=== PATIENT | female | born 1950 | race Caucasian/White ===

== ENCOUNTER → 2019-05-18 | Outpatient (CLI) | payer OTHER ==
[~2019-05-18] MED LIST: ATIVAN1 MG PO; COUMADIN 4 MG TA4 M1 PO; COZAAR 50 MG TA50 M1 PO; DIOVAN160 MG PO; GLUCOPHAGE1000 MG PO; METOPROLOL 100100 M1 PO; SIMVASTATIN OR; TRIAMTERENE-HC1 EAC3 PO; ZOCOR40 MG
== END ==
LOC: SJCVC 10:25
DX: R94.31 Abnormal electrocardiogram [ECG] [EKG] (principal); I48.0 Paroxysmal atrial fibrillation; E11.22 Type 2 diabetes mellitus with diabetic chronic kidney disease; I12.9 Hypertensive chronic kidney disease with stage 1 through stage 4 chronic kidney disease, or unspecified chronic kidney disease; N18.2 Chronic kidney disease, stage 2 (mild); E78.5 Hyperlipidemia, unspecified; K21.9 Gastro-esophageal reflux disease without esophagitis; Z90.49 Acquired absence of other specified parts of digestive tract; Z79.899 Other long term (current) drug therapy; Z87.891 Personal history of nicotine dependence

== ENCOUNTER → 2019-11-19 | Outpatient (CLI) | payer OTHER | LOC: SJCVC 10:20 | PROVIDERS: ATTEND Internal Medicine | DX: R00.1 Bradycardia, unspecified (principal); R94.31 Abnormal electrocardiogram [ECG] [EKG]; I48.0 Paroxysmal atrial fibrillation; I12.9 Hypertensive chronic kidney disease with stage 1 through stage 4 chronic kidney disease, or unspecified chronic kidney disease; E11.22 Type 2 diabetes mellitus with diabetic chronic kidney disease; N18.2 Chronic kidney disease, stage 2 (mild); E78.5 Hyperlipidemia, unspecified; G45.9 Transient cerebral ischemic attack, unspecified; E66.9 Obesity, unspecified; Z82.49 Family history of ischemic heart disease and other diseases of the circulatory system; Z87.891 Personal history of nicotine dependence; Z79.899 Other long term (current) drug therapy ==

== ENCOUNTER → 2020-04-24 | Outpatient (CLI) | payer OTHER | LOC: SJCVCIMAG 04-14 07:38 | PROVIDERS: ATTEND Internal Medicine | DX: I49.9 Cardiac arrhythmia, unspecified (principal); I49.3 Ventricular premature depolarization; I48.0 Paroxysmal atrial fibrillation; R00.2 Palpitations; E11.22 Type 2 diabetes mellitus with diabetic chronic kidney disease; I13.10 Hypertensive heart and chronic kidney disease without heart failure, with stage 1 through stage 4 chronic kidney disease, or unspecified chronic kidney disease; N18.30 Chronic kidney disease, stage 3 unspecified; E78.5 Hyperlipidemia, unspecified; K21.9 Gastro-esophageal reflux disease without esophagitis; E66.9 Obesity, unspecified; Z90.49 Acquired absence of other specified parts of digestive tract; Z98.890 Other specified postprocedural states; Z79.84 Long term (current) use of oral hypoglycemic drugs; Z79.01 Long term (current) use of anticoagulants; Z79.899 Other long term (current) drug therapy; Z87.891 Personal history of nicotine dependence; Z86.73 Personal history of transient ischemic attack (TIA), and cerebral infarction without residual deficits; Z82.49 Family history of ischemic heart disease and other diseases of the circulatory system ==

== ENCOUNTER → 2020-05-14 | Outpatient (CLI) | payer OTHER ==
[~2020-05-14] VITALS: Ht 162.6 cm; Wt 113.4 kg
[2020-05-14 08:47] VITALS: BP 169/67
[2020-05-14 08:59] LABS: HEMATOCRIT 36.9 % (37.0-47.0); HEMOGLOBIN 11.8 gm/dL (12.0-15.0); MCH 30.1 pg (26.0-34.0); MCV 94.1 fL (80.0-100.0); RBC 3.92 mil/uL (4.20-5.00); RDW 14.3 % (10.5-14.5); WBC 7.4 thou/uL (4.0-11.0)
[2020-05-14 09:44] LABS: CALCIUM 9.1 mg/dL (8.5-10.1); CREATININE 1.2 mg/dL (0.6-1.0); POTASSIUM 4.5 mmol/L (3.5-5.1)
--- NOTE | 2020-05-14 10:05 | EKG ---
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 : 1950 Requested By: Zack Cline Order Number: [id number] MD: Andrew Feliciano Measurements Intervals [place] Rate: 59 P: [place]: QRS: -16 QRSD: 114 T: 86 QT: 419 QTc: 415 Interpretive Statements Artifact, NSR Borderline intraventricular conduction delay Abnormal R-wave progression, early transition Abnormal T, consider ischemia, anterior leads Compared to ECG 03/09/2011 02:47:31 Possible ischemia now present Poor R-wave progression no longer present T-wave abnormality still present Electronically Signed On 05-14-2020 10:04:43 CDT by Andrew Feliciano [email or web address] <ELECTRONICALLY SIGNED> By: Andrew Feliciano MD, FACC 05/14/20 1004 0838 Andrew Feliciano MD, [facility] /EPI
--- NOTE | 2020-05-16 17:01 | CATHLAB ---
[facility] [place] [address] INVASIVE PROCEDURE REPORT Name: REJI CARDOZO Reginaldo Room #: MARITZA JONESShahida Hackett#: [id number] Admission: 05/14/20 Attend Phys: Zack Cline Discharge: Date of : 52 Report #: [id number] THIS REPORT FOR: cc: Nuha Khan MD, Paula V. MD Lammoglia, Francisco J. MD ~ APPROVED REPORT Study performed: 05/14/2020 09:25:02 Patient Details Patient Status: Out-Patient Room #: The patient is a 69 year-old female Event Personnel Zack Cline Clinical Nursing Assistant, Sonido Dacosta RN RN, Nicki Carlos RTR ScrubMark Sherra RTR Monitor Procedures Performed Art Access - R femoral artery* Left Heart Cath w/or w/o Coronaries [id number] [facility] [address]852 Initial Mod Sed Same Phys/QHP Gr 171746 25785 Mod Sed Same Phys/QHP Ea 055472 Hemostasis with Manual pressure, supervision of conscious sedation Indication Positive stress test, Chest pain Procedure Narrative The Right Groin^ was infiltrated with 1% Lidocaine subcutaneous anesthesia. A PINNACLE 4FR Sheath #[id number] sheath was inserted into the RFA^. Coronary angiography was performed using coronary diagnostic catheters. The right coronary system was accessed and visualized with a JR4 catheter. The left coronary system was accessed and visualized with a JL4 catheter. The left ventricle was accessed and visualized with a PIGTAIL catheter. Hemostasis was obtained with manual pressure following sheath removal without any complications. The patient tolerated the procedure well and there were no complications associated with the procedure. There was no hematoma. Intraoperative Conscious Sedation Sedation start time: 1042 Case end Time: 1104 Versed 2 mg [facility] [address] [place] [address] INVASIVE PROCEDURE REPORT Name: REJI CARDOZO Room #: [facility] Lew#: [id number] Admission: 05/14/20 Attend Phys: Zack Mccann Discharge: Date of : 52 Report #: [id number] Fluoro Time: 1.40 minutes Dose: DAP 6518.10 cGycm2 1057 mGy Contrast Type and Amount: Omnipaque 60 ml Coronary Angiography The patient's coronary anatomy is right dominant. Diagnostic Cath Left Main Normal origin moderate to large caliber vessel of extremely short length which bifurcates left anterior descending left circumflex. No high-grade lesions are noted. No plaquing is present. LAD Moderate to large caliber type II vessel which courses in the anterior interventricular sulcus. Gives rise to a small first diagonal branches course on the anterolateral wall free of high-grade disease. LAD proper continues gives rise to septal and diagonal branches of the tapers and terminates as a bifurcating vessel at the apex Diagonal 1 Small caliber long length vessel without high-grade lesions are noted Circumflex Large-caliber vessel which courses giving rise to a large marginal branch. The circumflex proper continues in the AV groove is a small posterior wall branch. This large marginal branch gives rise to several subbranches as it courses along the lateral aspect of the left ventricle OM1 Small insignificant caliber vessel OM2 Large-caliber vessel coursing on the lateral aspect of the heart giving rise to several branches free of high-grade disease. No flow-limiting lesions are noted or luminal irregularities. Right Coronary Large-caliber dominant vessel of normal origin courses in the AV groove giving rise to small right atrial and right ventricular branches. And continues to the crux of the heart giving rise to a moderate caliber posterior descending artery which is free of high-grade disease. The right coronary then terminates as a small distal RCA with small posterior wall branches and small posterior lateral branch and artery to the AV node R PDA Moderate caliber vessel coursing the posterior interventricular sulcus free of high-grade Left Ventriculography Left Ventriculography was not performed. Hemodynamics The aortic pressure is 145/62 mmHg with a mean of 93 mmHg. The left ventricular pressure is 132/20 mmHg with a mean of mmHg. The left [facility] [address] [place] [address] INVASIVE PROCEDURE REPORT Name: CARDOZOREJI L Room #: REG KAREN Hackett#: [id number] Admission: 05/14/20 Attend Phys: Zack Mccann Discharge: Date of : 52 Report #: [id number] ventricular end diastolic pressure is 36 mmHg. Conclusion 1. Essentially normal coronary arteries with minimal plaquing identified 2. Normal hemodynamic Recommendations Cardiac Risk Reduction Program Medical Therapy <ELECTRONICALLY SIGNED> By: Zack Cline MD 05/16/201700 00 00 Zack Cline MD /INF
== END | disposition home or self-care (01) ==
LOC: CATH 07:25
PROVIDERS: ATTEND Internal Medicine
DX: I25.10 Atherosclerotic heart disease of native coronary artery without angina pectoris (principal); E11.22 Type 2 diabetes mellitus with diabetic chronic kidney disease; N18.2 Chronic kidney disease, stage 2 (mild); E78.5 Hyperlipidemia, unspecified; I48.0 Paroxysmal atrial fibrillation; F41.9 Anxiety disorder, unspecified; Z98.890 Other specified postprocedural states; Z79.899 Other long term (current) drug therapy; Z86.73 Personal history of transient ischemic attack (TIA), and cerebral infarction without residual deficits; Z79.01 Long term (current) use of anticoagulants

== ENCOUNTER → 2020-09-10 | Outpatient (CLI) | payer OTHER | LOC: SJCVC 09:56 | PROVIDERS: ATTEND Internal Medicine | DX: R06.00 Dyspnea, unspecified (principal); E78.5 Hyperlipidemia, unspecified; I48.0 Paroxysmal atrial fibrillation; I25.10 Atherosclerotic heart disease of native coronary artery without angina pectoris; E11.22 Type 2 diabetes mellitus with diabetic chronic kidney disease; I12.9 Hypertensive chronic kidney disease with stage 1 through stage 4 chronic kidney disease, or unspecified chronic kidney disease; N18.2 Chronic kidney disease, stage 2 (mild); K21.9 Gastro-esophageal reflux disease without esophagitis; E66.9 Obesity, unspecified; Z90.49 Acquired absence of other specified parts of digestive tract; Z98.890 Other specified postprocedural states; Z79.84 Long term (current) use of oral hypoglycemic drugs; Z79.01 Long term (current) use of anticoagulants; Z79.899 Other long term (current) drug therapy; Z86.73 Personal history of transient ischemic attack (TIA), and cerebral infarction without residual deficits; Z87.891 Personal history of nicotine dependence; Z82.49 Family history of ischemic heart disease and other diseases of the circulatory system ==

== ENCOUNTER → 2020-10-17 | Outpatient (CLI) | payer OTHER ==
[2020-10-17 11:50] VITALS: BP 160/61
--- NOTE | 2020-10-20 13:17 | LINQ ---
[facility] [place] [address] LINQ PROCEDURE REPORT Name: REJI CARDOZO Reginaldo Room #: REG Shahida Hackett#: [id number] Admission: 10/17/20 Attend Phys: Zack Cline Discharge: Date of : 52 Report #: [id number] THIS REPORT FOR: cc: Nuha Khan MD, Paula V. MD Lammoglia, Francisco J. MD ~ APPROVED REPORT Study performed: 10/17/2020 11:45:12 Patient Status: Out-Patient Room #: Event Personnel: Zack Cline MD Exam: Linq Insertion Indications: Palpitations, irregular heartbeat, history of atrial fibrillation device utilized for correlation of symptoms with cardiac dysrhythmias Implanted Devices: [employer]: Reveal LINQ; Model #: LNQ11; Serial #: [id number]; Use by: 2021-04-27 Procedure The patient underwent informed consent. We discussed the details of the procedure including the risks, which include, but not limited to bleeding, infection, vascular damage, cardiac perforation, and pneumothorax. After full consent was obtained the patient was brought to the cardiac observation prepped and hold. Left chest was prepped and draped in usual sterile manner. Utilizing 1% lidocaine the proposed incision site was instilled as well as the proposed insertion tract. Utilizing both sharp and blunt dissection after an 11 blade was utilized to make a small incision the pocket was developed. Utilizing the deployment tool the device was deployed without difficulty. Subcutaneous tissue was then closed with 2 simple interrupted sutures and the skin was closed with running subcuticular. Dermabond was utilized in the skin as well as Steri-Strips 4 x 4 OpSite. Patient tolerated procedure well Complications The patient tolerated the procedure well and there were no complications associated with the procedure. Findings Specimens Removed: N/A [address] [address] [place] PROCEDURE REPORT Name: REJI CARDOZO Room #: REG [facility]#: [id number] Admission: 10/17/20 Attend Phys: Zack Mccann Discharge: Date of : 52 Report #: [id number] Conclusion 1. Successful insertion of an implantable loop recorder Recommendations 1. Routine post loop recorder insertion protocol <ELECTRONICALLY SIGNED> By: Zack Cline MD 10/20/20 1317 16 16 Zack Cline MD /INF
== END | disposition home or self-care (01) ==
LOC: CATH 10-08 09:53
PROVIDERS: ATTEND Internal Medicine
DX: R00.2 Palpitations (principal); I49.9 Cardiac arrhythmia, unspecified; Z86.79 Personal history of other diseases of the circulatory system; Z79.899 Other long term (current) drug therapy; Z79.01 Long term (current) use of anticoagulants

== ENCOUNTER → 2020-10-27 | Outpatient (CLI) | payer OTHER | LOC: SJCVC 09:19 | PROVIDERS: ATTEND Internal Medicine | DX: R06.00 Dyspnea, unspecified (principal); I48.0 Paroxysmal atrial fibrillation; I25.10 Atherosclerotic heart disease of native coronary artery without angina pectoris; I12.9 Hypertensive chronic kidney disease with stage 1 through stage 4 chronic kidney disease, or unspecified chronic kidney disease; N18.2 Chronic kidney disease, stage 2 (mild); E78.5 Hyperlipidemia, unspecified; Z79.899 Other long term (current) drug therapy; Z86.73 Personal history of transient ischemic attack (TIA), and cerebral infarction without residual deficits; Z87.891 Personal history of nicotine dependence ==